=== PATIENT | male | born 1990 | race Two or more races ===

== ENCOUNTER 2025-03-07 02:36 | Inpatient (IN) | payer BC, OTHER ==
[~2025-03-07] VITALS: Ht 177.8 cm; Wt 100.9 kg
[2025-03-07] MEDS: LIDOCAINE VISCOUS 2% 15ML UD PO ONE (03:27)
[2025-03-07] MEDS: MAALOX PLUS or MAALOX 30 ML PO ONE (03:27)
--- NOTE | 2025-03-07 03:28 | ED.PDOC ---
History of Present Illness HPI Comments 34 year old male PMHx IBS, presents to the ED with a chief compliant of abdominal pain onset 2 days. Patient states has been experiencing epigastric pain 2 days ago, worsened this morning. About 1 week ago patient traveled to [place], when he returned he began experiencing sore throat, chills, body ache, watery eyes. This morning he noticed pain was causing shortness of breath, came to ED. Currently rates pain 8/10. Denies fever, nausea, vomiting, diarrhea, constipation, dizziness, chest pain, dysuria, hematuria, melena. No other symptoms or modifying factors present at this time. Patient does not currently have a PCP. PHYSICAL EXAM: General: Awake, alert and oriented. No acute distress. Skin: Skin in warm, dry and intact. Appropriate color for ethnicity. HEENT: The head is normocephalic and atraumatic. Conjunctivae are clear without exudates or hemorrhage. Sclera is non-icteric. Eyelids are normal in appearance without swelling or lesions. Oral mucosa is pink and moist Neck: The neck is supple with normal range of motion. No JVD. Cardiac: Heart rate and rhythm are normal. No murmurs, gallops, or rubs are auscultated. Respiratory: No signs of respiratory distress. Lung sounds are clear in all lobes bilaterally without rales, rhonchi, or wheezes. Abdominal: Epigastric tenderness, no CVA tenderness. Bowel sounds are present and normoactive in all four quadrants. Extremities: Lower extremities without edema. Neurological: The patient is awake, alert and oriented to person, place, and time with normal speech. Speech is clear. There is no facial asymmetry. Psychiatric: Appropriate mood and affect. Good judgement and insight. REVIEW OF SYSTEMS: General: No fever, no chills, or fatigue HEENT: No sore throat, no earache, no congestion, no neck pain. Cardiac: No chest pain. No palpitations. Lungs: shortness of breath, no cough. GI: abdominal pain : No dysuria, frequency, or urgency. No hematuria. Musculoskeletal: No joint pain , no joint swelling, no extremity edema. Skin: No rash, no itching. Neuro: No headache, no dizziness, no weakness (And as sated in HPI) Chief Complaint: Abdominal Pain Time Seen by MD: 03:15 Reviewed Notes: Medications, Allergies Allergies: Coded Allergies: No Known Drug Allergy (Verified Allergy, Unknown, 03/07/25) Information Source: Patient Mode of Arrival: Ambulatory Severity: Moderate Timing: Hours Duration: Since onset Prehospital treatment: None Past Medical History Past Medical History (Other): IBS Surgical History: Denies all surgeries Family History Family History: Reviewed,noncontributory to illness, No family hx of Cancer, No family hx of DM, No family hx of Heart celi, No family hx of HTN, No family hx ofKidney celi, No family hx of Liver celi, No family hx of Lung celi, No family hx of Stroke Social History Smoker: Non-Smoker Alcohol: Denies ETOH Use Drugs: Denies Drug Use Lives In: Home Was a procedure done? Was a procedure done?: No Differential Dx Considerations may include: Differential diagnoses considered include: Abdominal aortic aneurysm, OR, esophageal rupture, intestinal obstruction, mesenteric ischemia, perforated viscus or solid organ rupture, CHF with hepatomegaly, pneumonia, abscess, appendicitis, biliary disease, diverticulitis, gastritis, gastroenteritis, hepatitis, hernia, inflammatory bowel disease, pancreatitis, peptic ulcer disease, urinary tract infection, ureteral colic, constipation, GERD, irritable syndrome, abdominal wall pain, nonspecific abdominal pain, herpes zoster, nephrolithiasis. X-Ray, Labs, Meds, VS Vital Signs Date Time Temp Pulse Resp B/P (MAP) Pulse Ox O2 Delivery O2 Flow Rate FiO2 03/07/25 03:31 Room Air* 0 21 03/07/25 03:29 97.9 89 16 138/58 (84) 96 97.9 03/07/25 02:39 98.4 99 18 143/89 98 98.4 Lab Test 03/07/25 03:45 03/07/25 03:34 Range/Units Influenza Type A Antigen Positive Negative Influenza Type B Antigen Negative Negative SARS-CoV-2 Antigen (Rapid) Negative NEGATIVE White Blood Count 7.3 4.4-10.8 10^3/uL Red Blood Count 5.00 4.5-5.90 10^6/uL Hemoglobin 15.6 13.5-17.5 g/dL Hematocrit 44.2 41.0-53.0 % Mean Corpuscular Volume 88.5 80.0-100.0 fL Mean Corpuscular Hemoglobin 31.2 28.0-32.0 pg Mean Corpuscular Hemoglobin Concent 35.3 32.0-36.0 g/dL Red Cell Distribution Width 12.2 11.8-14.3 % Platelet Count 215 140-450 10^3/uL Mean Platelet Volume 7.4 6.9-10.8 fL Neutrophils (%) (Auto) 85.7 H 37.0-80.0 % Lymphocytes (%) (Auto) 6.5 L 10.0-50.0 % Monocytes (%) (Auto) 7.7 0.0-12.0 % Eosinophils (%) (Auto) 0.0 0.0-7.0 % Basophils (%) (Auto) 0.1 0.0-2.0 % Neutrophils # (Auto) 6.2 1.6-8.6 10 ^3/uL Lymphocytes # (Auto) 0.5 0.4-5.4 10 ^3/uL Monocytes # (Auto) 0.6 0-1.3 10 ^3/uL Eosinophils # (Auto) 0 0-0.8 10 ^3/uL Basophils # (Auto) 0 0-0.2 10 ^3/uL Nucleated Red Blood Cells 0.0 % Sodium Level 141 136-145 mmol/L Potassium Level 3.8 3.5-5.1 mmol/L Chloride Level 104 98-107 mmol/L Carbon Dioxide Level 27 20-31 mmol/L Anion Gap 10 5-15 Blood Urea Nitrogen 12 9-23 mg/dL Creatinine 0.95 0.700-1.30 mg/dL Glomerular Filtration Rate Calc 109 >90 mL/min BUN/Creatinine Ratio 12.6 10.0-20.0 Serum Glucose 139 H 74-106 mg/dL Calcium Level 9.5 8.7-10.4 mg/dL Total Bilirubin 1.4 H 0.2-1.0 mg/dL Aspartate Amino Transferase (AST) 307 H 13-40 U/L Alanine Aminotransferase (ALT) 264 H 7-40 U/L Alkaline Phosphatase 155 H 46-116 U/L Troponin I High Sensitivity 4 </=54 ng/L Total Protein 7.9 5.7-8.2 g/dL Albumin 4.8 3.2-4.8 g/dL Lipase 28 12-53 U/L Thyroid Stimulating Hormone (TSH) 0.63 0.55-4.78 uIU/mL Plasma/Serum Blood Alcohol < 3.0 <10 mg/dL Current Medications Medications (Trade) Dose Ordered Sig/Sana Route Start Time Stop Time Status Last Admin Al Hydrox/Mg Hydrox/Simethicone (Maalox Plus) 30 ml ONCE ONCE PO 03/07/25 03:30 03/07/25 03:31 DC 03/07/25 03:27 Lidocaine HCl (Xylocaine 2% Viscous) 10 ml ONCE ONCE PO 03/07/25 03:30 03/07/25 03:31 DC 03/07/25 03:27 Ketorolac Tromethamine (Toradol Injection) 15 mg ONCE ONCE IV 03/07/25 05:15 03/07/25 06:12 DC 03/07/25 06:27 Time of 1ST Reevaluation: 03:45 Reevaluation 1ST: Unchanged Patient Education/Counseling: Diagnosis, Treatment, Need For Follow Up Family Education/Counseling: No Family Present SEPSIS Sepsis Screen Date sepsis recognized/suspect: Mar 07, 2025 Time Sepsis recognized/suspect: 241 Recent Procedure: No On Antibiotic Therapy: No Respiratory Rate >20: No Heart Rate >90: No Temp<36 C (96.8 F) or >38.3 C: No SBP <90 or MAP <65 mmHG: No New Acute Mental Status Change: No Is the patient on CPAP, BIPAP,: No Physician Orders Chest Xray 1 View (03/07/25 03:20) Electrocardigram (03/07/25 03:20) Abdomen Limited (03/07/25 05:13) Saline Lock (03/07/25 05:13) Vital Signs Date Time Temp Pulse Resp B/P (MAP) Pulse Ox O2 Delivery O2 Flow Rate FiO2 03/07/25 03:31 Room Air* 0 21 03/07/25 03:29 97.9 89 16 138/58 (84) 96 97.9 03/07/25 02:39 98.4 99 18 143/89 98 98.4 Laboratory Tests Test 03/07/25 03:34 White Blood Count 7.3 10^3/uL (4.4-10.8) Departure 1 Departure Time of Disposition: 05:28 Impression: Primary Impression: Elevated LFTs Additional Impressions: Influenza A Abdominal pain Disposition: ADMITTED INPATIENT Condition: Stable Comments MDM: Patient is stabilized in the emergency department. Right upper quadrant ultrasound pending. Patient admitted to hospitalist service for further treatment, evaluation and monitoring. Extensive evaluation was performed in attempt to identify or rule out: (See differential diagnosis section) The following tests were ordered, and results were reviewed by me and discussed with patient: (See diagnostic results section) Decision regarding hospitalization or escalation of hospital level of care: Risk and benefits of admission for further treatment of patient's condition was considered. Due to patient's current clinical condition, high risk of decline and poor outcome if discharged and need for further inpatient management and monitoring, patient will be admitted to the hospital. Parenteral controlled substances: IV morphine Diagnosis or treatment significantly limited by social determinants of health: Patient does not have a PCP. Critical Care Note Critical Care Time?: No Stability Stability form required: No Heart Score Heart Score: Heart Score Response (Comments) Value History N/A 0 EKG N/A 0 Age N/A 0 Risk Factors N/A 0 Troponin N/A 0 Total 0 I personally scribed for MAGNO GRULLON MD ([email or web address]) on 03/07/25 at 03:28. Electronically submitted by Diana Larios ([email or web address]). MAGNO GRULLON MD Mar 07, 2025 03:28
[2025-03-07 03:55] LABS: Hematocrit 44.2 % (41.0-53.0); Hemoglobin 15.6 g/dL (13.5-17.5); Mean Corpuscular Hemoglobin 31.2 pg (28.0-32.0); Mean Corpuscular Volume 88.5 fL (80.0-100.0); Nucleated Red Blood Cells % 0.0 %
[2025-03-07 04:14] LABS: Albumin 4.8 g/dL (3.2-4.8); Anion Gap 10 (5-15); BUN/Creatinine Ratio 12.6 (10.0-20.0); Blood Urea Nitrogen 12 mg/dL (9-23); Calcium 9.5 mg/dL (8.7-10.4); Carbon Dioxide 27 mmol/L (20-31); Chloride 104 mmol/L (98-107); Lipase 28 U/L (12-53); Potassium 3.8 mmol/L (3.5-5.1); Sodium 141 mmol/L (136-145); Total Protein 7.9 g/dL (5.7-8.2)
[2025-03-07 04:37] LABS: Alanine Aminotransferase 264 U/L (7-40); Alkaline Phosphatase 155 U/L (46-116); Bilirubin, Total 1.4 mg/dL (0.2-1.0); Glucose 139 mg/dL (74-106)
[2025-03-07 05:24] LABS: COVID19 ANTIGEN SOFIA FIA NEGATIVE (NEGATIVE)
--- NOTE | 2025-03-07 05:36 | DVH ---
CHEST RADIOGRAPH Indication: Epigastric pain Technique: 1 view Comparison: None FINDINGS: Lines and Tubes: None. Lungs/Pleura: No focal consolidation, pleural effusion or pneumothorax. Cardiomediastinum: Unremarkable. Other: No acute osseous abnormality. IMPRESSION: 1. No acute cardiopulmonary abnormality.
[2025-03-07] MEDS: KETOROLAC TROMETH 30 MG/ML 1ML VIAL IV ONE (06:27)
--- NOTE | 2025-03-07 07:09 | DVH ---
INDICATION: RUQ ultrasound. Elevated LFTs. Epigastric pain. TECHNIQUE: Multiple real-time sonographic images of the abdomen were obtained. COMPARISON: None FINDINGS: The liver is increased in echogenicity. The liver measures 16.9 cm. No intrahepatic biliary ductal dilatation is noted. The gallbladder wall measures 0.2 cm and is unremarkable. No gallstones or sludge is seen. The common duct measures 0.3 cm and is unremarkable. No pericholecystic fluid is noted. Negative sonographic Barreto's sign. The right kidney measures 10.2 cm. No hydronephrosis. The pancreas is not well visualized due to obscuration from bowel gas. The visualized portions of the IVC and aorta are grossly unremarkable. IMPRESSION: 1. Hepatic steatosis. 2. No sonographic evidence of acute cholecystitis.
[2025-03-07] MEDS ORDERED: ACETAMINOPHEN 325 MG TAB PO PRN (07:15)
[2025-03-07] MEDS ORDERED: MORPHINE SULFATE INJ 2 MG/ml SYRG IV PRN (07:15)
--- NOTE | 2025-03-07 07:28 | DVHHP2 ---
History of Present Illness Reason for Visit: Abdominal pain History of Present Illness Sergo Bustos is a 34-year-old male with no past medical history who presents to the ED with abdominal pain that started yesterday at 10:00 p.m.. He reports that the pain is 9/10 "punching" and constant in nature. He reports that lying on his left or right side makes it worse also reports that medications make it better. He reports that he ate coleslaw, doshi salad, popcorn, and cookies yesterday night. Patient also reports that he was at the airport and there was quite a bit of sick people there. Patient reports that he traveled to [facility] 1 week ago and had a significant amount of sushi as well as raw food. 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 Patient denies any recent trauma or injury, recent ingestion of spoiled food, alcohol use, tobacco use, or drug use. Patient also denies chest pain, fever, chills, lightheadedness, weakness, dizziness, nausea, vomiting, diarrhea, or urinary symptoms. Patient expressed that he does not want to stay we will discuss it with his girlfriend. Explained risks and benefits of leaving against medical advice. Patient reports that he lives at home with his girlfriend and her family. Past Surgical History: None Family History: Other (Mom with migraines. Brother and uncle with fatty liver disease.) Smoke: No ALCOHOL: none Drugs: None Lives: with Family Domestic Violence: Neg Review of Systems Respiratory: Shortness of breath Gastrointestinal: Abdominal Pain Allergies: Coded Allergies: No Known Drug Allergy (Verified Allergy, Unknown, 03/07/25) Exam Vital Signs Vital Signs Date Time Temp Pulse Resp B/P (MAP) Pulse Ox O2 Delivery O2 Flow Rate FiO2 03/07/25 03:31 Room Air* 0 21 03/07/25 03:29 97.9 89 16 138/58 (84) 96 97.9 General Appearance: Alert, Oriented X3, Cooperative, No acute distress HEENT: Atraumatic, PERRLA, EOMI, Mucous membr. moist/pink Respiratory: Clear to auscultation, Normal air movement Cardiovascular: Regular rate, Normal S1, Normal S2, No murmurs Abdominal: Normal bowel sounds, Soft Extremities: No clubbing, No cyanosis, No edema, Normal pulses, No tenderness/swelling Skin: No significant lesion Neuro: Normal gait, Normal speech, Strength at 5/5 X4 ext, Normal tone, Sensation intact Psych/Mental Status: Mental status NL, Mood NL Labs/Xrays Labs Test 03/07/25 03:45 03/07/25 03:34 Range/Units Influenza Type A Antigen Positive Negative Influenza Type B Antigen Negative Negative SARS-CoV-2 Antigen (Rapid) Negative NEGATIVE White Blood Count 7.3 4.4-10.8 10^3/uL Red Blood Count 5.00 4.5-5.90 10^6/uL Hemoglobin 15.6 13.5-17.5 g/dL Hematocrit 44.2 41.0-53.0 % Mean Corpuscular Volume 88.5 80.0-100.0 fL Mean Corpuscular Hemoglobin 31.2 28.0-32.0 pg Mean Corpuscular Hemoglobin Concent 35.3 32.0-36.0 g/dL Red Cell Distribution Width 12.2 11.8-14.3 % Platelet Count 215 140-450 10^3/uL Mean Platelet Volume 7.4 6.9-10.8 fL Neutrophils (%) (Auto) 85.7 H 37.0-80.0 % Lymphocytes (%) (Auto) 6.5 L 10.0-50.0 % Monocytes (%) (Auto) 7.7 0.0-12.0 % Eosinophils (%) (Auto) 0.0 0.0-7.0 % Basophils (%) (Auto) 0.1 0.0-2.0 % Neutrophils # (Auto) 6.2 1.6-8.6 10 ^3/uL Lymphocytes # (Auto) 0.5 0.4-5.4 10 ^3/uL Monocytes # (Auto) 0.6 0-1.3 10 ^3/uL Eosinophils # (Auto) 0 0-0.8 10 ^3/uL Basophils # (Auto) 0 0-0.2 10 ^3/uL Nucleated Red Blood Cells 0.0 % Sodium Level 141 136-145 mmol/L Potassium Level 3.8 3.5-5.1 mmol/L Chloride Level 104 98-107 mmol/L Carbon Dioxide Level 27 20-31 mmol/L Anion Gap 10 5-15 Blood Urea Nitrogen 12 9-23 mg/dL Creatinine 0.95 0.700-1.30 mg/dL Glomerular Filtration Rate Calc 109 >90 mL/min BUN/Creatinine Ratio 12.6 10.0-20.0 Serum Glucose 139 H 74-106 mg/dL Calcium Level 9.5 8.7-10.4 mg/dL Total Bilirubin 1.4 H 0.2-1.0 mg/dL Aspartate Amino Transferase (AST) 307 H 13-40 U/L Alanine Aminotransferase (ALT) 264 H 7-40 U/L Alkaline Phosphatase 155 H 46-116 U/L Troponin I High Sensitivity 4 </=54 ng/L Total Protein 7.9 5.7-8.2 g/dL Albumin 4.8 3.2-4.8 g/dL Lipase 28 12-53 U/L INDICATION: RUQ ultrasound. Elevated LFTs. Epigastric pain. TECHNIQUE: Multiple real-time sonographic images of the abdomen were obtained. COMPARISON: None FINDINGS: The liver is increased in echogenicity. The liver measures 16.9 cm. N o intrahepatic biliary ductal dilatation is noted. The gallbladder wall measures 0.2 cm and is unremarkable. No gallstones or sludge is seen. The common duct measures 0.3 cm and is unremarkable. No pericholecystic fluid is noted. Negative sonographic Barreto's sign. The right kidney measures 10.2 cm. No hydronephrosis. The pancreas is not well visualized due to obscuration from bowel gas. The visualized portions of the IVC and aorta are grossly unremarkable. IMPRESSION: 1. Hepatic steatosis. 2. No sonographic evidence of acute cholecystitis. CHEST RADIOGRAPH Indication: Epigastric pain Technique: 1 view Comparison: None FINDINGS: Lines and Tubes: None. Lungs/Pleura: No focal consolidation, pleural effusion or pneumothorax. Cardiomediastinum: Unremarkable. Other: No acute osseous abnormality. IMPRESSION: 1. No acute cardiopulmonary abnormality. SEPSIS Sepsis Screen Date sepsis recognized/suspect: Mar 07, 2025 Time Sepsis recognized/suspect: 0242 Recent Procedure: No On Antibiotic Therapy: No Respiratory Rate >20: No Heart Rate >90: No Temp<36 C (96.8 F) or >38.3 C: No SBP <90 or MAP <65 mmHG: No New Acute Mental Status Change: No Is the patient on CPAP, BIPAP,: No Physician Orders Chest Xray 1 View (03/07/25 03:20) Electrocardigram (03/07/25 03:20) Abdomen Limited (03/07/25 05:13) Saline Lock (03/07/25 05:13) Vital Signs Date Time Temp Pulse Resp B/P (MAP) Pulse Ox O2 Delivery O2 Flow Rate FiO2 03/07/25 03:31 Room Air* 0 21 03/07/25 03:29 97.9 89 16 138/58 (84) 96 97.9 03/07/25 02:39 98.4 99 18 143/89 98 98.4 Laboratory Tests Test 03/07/25 03:34 White Blood Count 7.3 10^3/uL (4.4-10.8) Medications Medications Dose Ordered Sig/Sana Route Start Time Stop Time Status Last Admin Dose Admin Al Hydrox/Mg Hydrox/Simethicone 30 ml ONCE ONCE PO 03/07/25 03:30 03/07/25 03:31 DC 03/07/25 03:27 30 ML Ketorolac Tromethamine 15 mg ONCE ONCE IV 03/07/25 05:15 03/07/25 06:12 DC 03/07/25 06:27 15 MG Lidocaine HCl 10 ml ONCE ONCE PO 03/07/25 03:30 03/07/25 03:31 DC 03/07/25 03:27 10 ML Assessment/Plan Assessment/Plan Assessment Intractable abdominal pain likely due to gastroenteritis Hyperbilirubinemia Transaminitis Hepatic steatosis Influenza A positive Plan Admit to med surge Antiemetics Pain management Trend T bili Tamiflu Abdominal ultrasound noted EKG noted Chest x-ray noted Troponin negative Lipase noted UA UDS Alcohol screen IV fluids Clear liquid diet No home medications to reconcile DVT prophylaxis-SCDs PUD prophylaxis-PPIs Discussed plan of care with patient and nurse [id number] Preventive counseling healthy eating habits, physical activity, and regular checkups Plan discussed with: Patient Date of Service: Mar 07, 2025 Billing Provider: ALVERTO SANCHEZ Common Visit Codes: [id number] INP/OBS CARE (HIGH) Secondary Visit Codes: [id number] COUNSELING IND ALVERTO SANCHEZ Mar 07, 2025 07:28
[2025-03-07 08:28] LABS: Urine Protein, UAD Negative (Negative)
[2025-03-07] MEDS: OSELTAMIVIR 75 MG CAP PO SCH (08:44)
[2025-03-07] MEDS: PANTOPRAZOLE 40 MG/10 ML VIAL INJ IV SCH (08:44)
[2025-03-07] MEDS: SODIUM CHLORIDE 0.9% 1,000 ML IV SCH (09:24)
--- NOTE | 2025-03-07 11:50 | DVHPN2 ---
Reviewed: Care Plan, H&P, Labs, Medications, Previous Orders, Radiology Changes from previous H/P or p: No Changes Respiratory: Shortness of breath Gastrointestinal: Abdominal Pain Objective Vitals Vital Signs Date Time Temp Pulse Resp B/P (MAP) Pulse Ox O2 Delivery O2 Flow Rate FiO2 03/07/25 08:49 98.0 68 14 133/81 (98) 95 98.0 03/07/25 03:31 Room Air* 0 21 Medications Current Medications Medications Dose Ordered Sig/Sana Route Start Time Stop Time Status Last Admin Dose Admin Sodium Chloride 1,000 ml @ 120 mls/hr [id number] IV 03/07/25 07:15 03/07/25 09:24 120 MLS/HR Acetaminophen/ Hydrocodone Bitart 1 tab Q4HP PRN PO 03/07/25 07:15 Ondansetron HCl 4 mg Q4HP PRN IV 03/07/25 07:15 Acetaminophen 650 mg Q6HP PRN PO 03/07/25 07:15 Morphine Sulfate 2 mg Q4HPRN PRN IV 03/07/25 07:15 Oseltamivir Phosphate 75 mg Q12HR PO 03/07/25 10:00 03/12/25 09:59 03/07/25 08:44 75 MG Pantoprazole Sodium 40 mg DAILY IV 03/07/25 10:00 03/07/25 08:44 40 MG Laboratory Results Laboratory Tests 03/07/25 03:34 Chemistry Test 03/07/25 03:34 Albumin 4.8 g/dL (3.2-4.8) Calcium Level 9.5 mg/dL (8.7-10.4) Total Protein 7.9 g/dL (5.7-8.2) Lipid panel Test 03/07/25 03:34 Lipase 28 U/L (12-53) LFT Test 03/07/25 03:34 Alanine Aminotransferase (ALT) 264 U/L (7-40) H Alkaline Phosphatase 155 U/L (46-116) H Aspartate Amino Transferase (AST) 307 U/L (13-40) H Total Bilirubin 1.4 mg/dL (0.2-1.0) H Urinalysis Test 03/07/25 09:34 Urine Color Light-yellow (Yellow) Urine Clarity Clear (Clear) Urine pH 6.5 (5.0-9.0) Urine Specific [place] 1.022 (1.001-1.035) Urine Protein Negative (Negative) Urine Ketones Negative (Negative) Urine Blood Negative /uL (Negative) Urine Nitrite Negative (Negative) Urine Bilirubin Negative (Negative) Urine Urobilinogen Normal mg/dL (Negative) Urine Leukocyte Esterase Negative /uL (Negative) Urine RBC <1 /hpf (0 - 3) Urine Microscopic WBC 1 /HPF (0-3) Urine Squamous Epithelial Cells None seen /hpf (<5) Urine Bacteria Few /hpf (None Seen) H Urine Mucus Few (None Seen) Urine Glucose Normal mg/dL (Normal) Labs and/or images reviewed: Labs reviewed by me, Image(s) reviewed by me Assessment/Plan Assessment/Plan Acute abdominal pain Type A flu positive: Tamiflu 75 mg p.o. b.i.d. five days Mild hyperbilirubinemia bilirubin 1.4 Elevated liver enzymes AST 307 ALT 264 ultrasound hepatitis panel GI consult by Dr. Rigoberto Gamez Fatty liver Time spent 45 minutes Advanced care planning time 20 minutes Plan discussed with: Patient My Orders Orders - HAYLEY LINTON MD Procedure Category Date Status Time Drug Screen LAB 03/07/25 Verified 11:47 Date of Service: Mar 07, 2025 Billing Provider: HAYLEY LINTON MD Common Visit Codes: [id number] INP/OBS CARE(HIGH) Secondary Visit Codes: [id number] CARE PLAN 30 MINUTES HAYLEY LINTON MD Mar 07, 2025 11:50
--- NOTE | 2025-03-07 12:22 | DVHCONRES ---
Date Seen: Mar 07, 2025 Resident Creating Document: NENA RANDOLPH RESIDENT Referring Physician Dr. Powers History of Present Illness Sergo Bustos is a 34-year-old male with no past medical history who presents to the ED with abdominal pain that started yesterday at 10:00 p.m.. He reports that the pain is 9/10 "punching" and constant in nature. He reports that lying on his left or right side makes it worse also reports that medications make it better. He reports that he ate coleslaw, doshi salad, popcorn, and cookies yesterday night. Patient also reports that he was at the airport and there was quite a bit of sick people there. Patient reports that he traveled to [facility] 1 week ago and had a significant amount of sushi as well as raw food. 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 Patient denies any recent trauma or injury, recent ingestion of spoiled food, alcohol use, tobacco use, or drug use. Patient also denies chest pain, fever, chills, lightheadedness, weakness, dizziness, nausea, vomiting, diarrhea, or urinary symptoms. Patient seen and examined in ER. Reports eating sushi/ food at [place], he reports feeling sick as soon as landing in [place] and the foot made it worse. Patient his influenza positive. Ordered hepatitis panel. Denies taking Tylenol/ibuprofen/Motrin. Patient has vomited thrice in the past 2 days. Allergies: Coded Allergies: No Known Drug Allergy (Verified Allergy, Unknown, 03/07/25) Current Medications Current Medications Medications (Trade) Dose Ordered Sig/Sana Route PRN Reason Start Time Stop Time Status Last Admin Sodium Chloride 1,000 ml @ 120 mls/hr Q8H20M IV 03/07/25 07:15 03/07/25 09:24 Acetaminophen/ Hydrocodone Bitart (Rousseau 5/325MG Tab) 1 tab Q4HP PRN PO MODERATE PAIN (4-6 PAIN SCALE) 03/07/25 07:15 Ondansetron HCl (Zofran) 4 mg Q4HP PRN IV NAUSEA / VOMITING 03/07/25 07:15 Acetaminophen (Tylenol Tablet) 650 mg Q6HP PRN PO PAIN SCALE 1-3 OR TEMP>100.4 03/07/25 07:15 Morphine Sulfate 2 mg Q4HPRN PRN IV SEVERE PAIN (7-10 PAIN SCALE) 03/07/25 07:15 Oseltamivir Phosphate (Tamiflu 75MG Capsule) 75 mg Q12HR PO 03/07/25 10:00 03/12/25 09:59 03/07/25 08:44 Pantoprazole Sodium (Protonix) 40 mg DAILY IV 03/07/25 10:00 03/07/25 08:44 Vital Signs Vital Signs Date Time Temp Pulse Resp B/P (MAP) Pulse Ox O2 Delivery O2 Flow Rate FiO2 03/07/25 08:49 98.0 68 14 133/81 (98) 95 98.0 03/07/25 03:31 Room Air* 0 21 Physical Exam Patient lying in bed, in no acute distress General: Well-built, afebrile, palor, mucosae are moist Cardiovascular: Regular S1 and S2. No murmurs, gallops or rubs. No JVD elevation. No pedal edema Respiratory: Normal B/L air entry on room air. Clear lung sounds on auscultation Abdomen: Soft, nontender, nondistended, normoactive bowel sounds, no rebound tenderness, no organomegaly, no masses Genitourinary: Deferred MSK/skin: Mobilizes 4 limbs. Skin is dry and warm Neurological: No motor, no sensitive deficits, normal speech. Pupils are isocoric and reactive. Psych/Mental Status: A/Ox3 Labs/Diagnostic Data Labs Test 03/07/25 09:34 03/07/25 03:45 03/07/25 03:34 Range/Units Urine Color Light-yellow Yellow Urine Clarity Clear Clear Urine pH 6.5 5.0-9.0 Urine Specific [place] 1.022 1.001-1.035 Urine Protein Negative Negative Urine Ketones Negative Negative Urine Blood Negative Negative /uL Urine Nitrite Negative Negative Urine Bilirubin Negative Negative Urine Urobilinogen Normal Negative mg/dL Urine Leukocyte Esterase Negative Negative /uL Urine RBC <1 0 - 3 /hpf Urine Microscopic WBC 1 0-3 /HPF Urine Squamous Epithelial Cells None seen <5 /hpf Urine Bacteria Few H None Seen /hpf Urine Mucus Few None Seen Urine Glucose Normal Normal mg/dL Influenza Type A Antigen Positive Negative Influenza Type B Antigen Negative Negative SARS-CoV-2 Antigen (Rapid) Negative NEGATIVE White Blood Count 7.3 4.4-10.8 10^3/uL Red Blood Count 5.00 4.5-5.90 10^6/uL Hemoglobin 15.6 13.5-17.5 g/dL Hematocrit 44.2 41.0-53.0 % Mean Corpuscular Volume 88.5 80.0-100.0 fL Mean Corpuscular Hemoglobin 31.2 28.0-32.0 pg Mean Corpuscular Hemoglobin Concent 35.3 32.0-36.0 g/dL Red Cell Distribution Width 12.2 11.8-14.3 % Platelet Count 215 140-450 10^3/uL Mean Platelet Volume 7.4 6.9-10.8 fL Neutrophils (%) (Auto) 85.7 H 37.0-80.0 % Lymphocytes (%) (Auto) 6.5 L 10.0-50.0 % Monocytes (%) (Auto) 7.7 0.0-12.0 % Eosinophils (%) (Auto) 0.0 0.0-7.0 % Basophils (%) (Auto) 0.1 0.0-2.0 % Neutrophils # (Auto) 6.2 1.6-8.6 10 ^3/uL Lymphocytes # (Auto) 0.5 0.4-5.4 10 ^3/uL Monocytes # (Auto) 0.6 0-1.3 10 ^3/uL Eosinophils # (Auto) 0 0-0.8 10 ^3/uL Basophils # (Auto) 0 0-0.2 10 ^3/uL Nucleated Red Blood Cells 0.0 % Sodium Level 141 136-145 mmol/L Potassium Level 3.8 3.5-5.1 mmol/L Chloride Level 104 98-107 mmol/L Carbon Dioxide Level 27 20-31 mmol/L Anion Gap 10 5-15 Blood Urea Nitrogen 12 9-23 mg/dL Creatinine 0.95 0.700-1.30 mg/dL Glomerular Filtration Rate Calc 109 >90 mL/min BUN/Creatinine Ratio 12.6 10.0-20.0 Serum Glucose 139 H 74-106 mg/dL Calcium Level 9.5 8.7-10.4 mg/dL Total Bilirubin 1.4 H 0.2-1.0 mg/dL Aspartate Amino Transferase (AST) 307 H 13-40 U/L Alanine Aminotransferase (ALT) 264 H 7-40 U/L Alkaline Phosphatase 155 H 46-116 U/L Troponin I High Sensitivity 4 </=54 ng/L Total Protein 7.9 5.7-8.2 g/dL Albumin 4.8 3.2-4.8 g/dL Lipase 28 12-53 U/L Assessment Acute gastroenteritis likely food-borne Acute influenza A infection History of IBS-constipation type-dicyclomine Hepatic steatosis Rule out hepatitis-C Plan: Recommendation: Dr. Gamez Continue IV fluids, IV antiemetics. H&H stable. No acute GI intervention indicated at this time. Follow up with the stool studies. Follow up with hepatitis studies. Monitor CMP. Continue Protonix 40 mg IV daily. Continue clear liquid diet, advanced as tolerated. Thank you for consulting GI we will continue to follow up. Plan discussed with patient in which all questions have been answered Case discussed with Dr. Gamez. Plan discussed with: Patient NENA RANDOLPH RESIDENT Mar 07, 2025 12:22
[2025-03-07 13:09] LABS: INR 0.97 (0.9-1.15); Partial Thromboplastin Time 30.1 SEC (24.5-34.5); Prothrombin Time 10.3 sec (9.3-11.8)
[2025-03-07 15:27] LABS: Opiate Scree,Urine Neg (NEGATIVE); Phencyclidine Screen, Urine Neg (NEGATIVE)
[2025-03-07 15:29] LABS: Amphetamine Screen, Urine Neg (NEGATIVE); Barbiturate Scree,Urine Neg (NEGATIVE); Benzodiazephine Screen, Urine Neg (NEGATIVE); Cannabinoid Screen, Urine Neg (NEGATIVE); Cocaine Screen, Urine Neg (NEGATIVE)
[2025-03-07 23:16] VITALS: BP 123/73; PULSE 66; RESP 17; TEMP 97.7; O2SAT 98
[2025-03-07 23:55] VITALS: BP 123/73; PULSE 66; RESP 17; TEMP 97.7; O2SAT 98
[2025-03-08] VITALS (7 sets, daily range): BP systolic 97–126; BP diastolic 50–78; PULSE 63–93; RESP 14–18; TEMP 97.1–98.6; O2SAT 93–98
[2025-03-08] MEDS ORDERED: DICY10CA PO (03:14)
[2025-03-08 05:17] LABS: Hematocrit 39.0 % (41.0-53.0); Hemoglobin 13.7 g/dL (13.5-17.5); Mean Corpuscular Hemoglobin 31.4 pg (28.0-32.0); Mean Corpuscular Volume 89.1 fL (80.0-100.0); Nucleated Red Blood Cells % 0.2 %
[2025-03-08 05:29] LABS: Alkaline Phosphatase 110 U/L (46-116); Anion Gap 5 (5-15); BUN/Creatinine Ratio 8.1 (10.0-20.0); Calcium 8.7 mg/dL (8.7-10.4); Carbon Dioxide 29 mmol/L (20-31); Glucose 104 mg/dL (74-106); Potassium 4.1 mmol/L (3.5-5.1); Sodium 143 mmol/L (136-145); Total Protein 6.3 g/dL (5.7-8.2)
[2025-03-08 05:30] LABS: Alanine Aminotransferase 214 U/L (7-40); Albumin 3.8 g/dL (3.2-4.8); Blood Urea Nitrogen 7 mg/dL (9-23); Chloride 109 mmol/L (98-107)
[2025-03-08 05:31] LABS: Bilirubin, Total 1.2 mg/dL (0.2-1.0)
[2025-03-08] MEDS: HYDROcodone-ACET 5/325MG TAB PO PRN (06:38)
--- NOTE | 2025-03-08 09:48 | DVHPN2 ---
Reviewed: Care Plan, H&P, Labs, Medications, Previous Orders, Radiology Changes from previous H/P or p: No Changes Respiratory: Shortness of breath Gastrointestinal: Abdominal Pain Objective Vitals Vital Signs Date Time Temp Pulse Resp B/P (MAP) Pulse Ox O2 Delivery O2 Flow Rate FiO2 03/08/25 05:00 97.1 93 16 98/57 (71) 95 97.1 03/07/25 23:55 Room Air* 0 21 Intake/Output Intake and Output 03/08/25 07:00 Intake Total 320 ml Balance 320 ml Intake Oral 320 ml # Voids 2 Medications Current Medications Medications Dose Ordered Sig/Sana Route Start Time Stop Time Status Last Admin Dose Admin Sodium Chloride 1,000 ml @ 120 mls/hr Q8H20M IV 03/07/25 07:15 03/07/25 22:48 120 MLS/HR Acetaminophen/ Hydrocodone Bitart 1 tab Q4HP PRN PO 03/07/25 07:15 03/08/25 06:38 1 TAB Ondansetron HCl 4 mg Q4HP PRN IV 03/07/25 07:15 Acetaminophen 650 mg Q6HP PRN PO 03/07/25 07:15 Morphine Sulfate 2 mg Q4HPRN PRN IV 03/07/25 07:15 Oseltamivir Phosphate 75 mg Q12HR PO 03/07/25 10:00 03/12/25 09:59 03/07/25 22:47 75 MG Pantoprazole Sodium 40 mg DAILY IV 03/07/25 10:00 03/07/25 08:44 40 MG Laboratory Results Laboratory Tests 03/08/25 04:55 Chemistry Test 03/08/25 04:55 Albumin 3.8 g/dL (3.2-4.8) Calcium Level 8.7 mg/dL (8.7-10.4) Total Protein 6.3 g/dL (5.7-8.2) Coagulation Test 03/07/25 12:40 Prothrombin Time 10.3 sec (9.3-11.8) Prothrombin Time INR 0.97 (0.9-1.15) Activated Partial Thromboplast Time 30.1 SEC (24.5-34.5) LFT Test 03/08/25 04:55 Alanine Aminotransferase (ALT) 214 U/L (7-40) H Alkaline Phosphatase 110 U/L (46-116) Aspartate Amino Transferase (AST) 89 U/L (13-40) H Total Bilirubin 1.2 mg/dL (0.2-1.0) H Urinalysis Test 03/07/25 09:34 Urine Color Light-yellow (Yellow) Urine Clarity Clear (Clear) Urine pH 6.5 (5.0-9.0) Urine Specific [place] 1.022 (1.001-1.035) Urine Protein Negative (Negative) Urine Ketones Negative (Negative) Urine Blood Negative /uL (Negative) Urine Nitrite Negative (Negative) Urine Bilirubin Negative (Negative) Urine Urobilinogen Normal mg/dL (Negative) Urine Leukocyte Esterase Negative /uL (Negative) Urine RBC <1 /hpf (0 - 3) Urine Microscopic WBC 1 /HPF (0-3) Urine Squamous Epithelial Cells None seen /hpf (<5) Urine Bacteria Few /hpf (None Seen) H Urine Mucus Few (None Seen) Urine Glucose Normal mg/dL (Normal) Labs and/or images reviewed: Labs reviewed by me, Image(s) reviewed by me Assessment/Plan Assessment/Plan Acute abdominal pain Type A flu positive: Tamiflu 75 mg p.o. b.i.d. five days Mild hyperbilirubinemia bilirubin 1.4 Elevated liver enzymes AST 307 ALT 264 gallbladder ultrasound shows no gallstones, fatty liver, hepatitis panel pending, GI consult by Dr. Rigoberto Gamez appreciated Fatty liver Time spent 45 minutes Advanced care planning time 20 minutes Plan discussed with: Patient My Orders Orders - HAYLEY LINTON MD Procedure Category Date Status Time * Gi [facility] In Home Tutor CONS 03/07/25 Transmitted 11:51 Date of Service: Mar 08, 2025 Billing Provider: HAYLEY LINTON MD Common Visit Codes: [id number] INP/OBS CARE(HIGH) HAYLEY LINTON MD Mar 08, 2025 09:48
[2025-03-08] MEDS: ONDANSETRON HCL 4 MG/2 ML VIAL IV PRN (10:59)
[2025-03-08 11:22] LABS: Hepatitis A Total Antibody Negative (Negative); Hepatitis B Surface Antigen Negative (Negative); Hepatitis C Antibody Negative (Negative)
--- NOTE | 2025-03-08 14:15 | DVHPN2 ---
Progress Note Date Seen: Mar 08, 2025 Resident Creating Document: NENA RANDOLPH RESIDENT Medical Necessity Reason Pt with a Central, PICC or Fol: No Subjective Review of Systems Sergo Bustos is a 34-year-old male with no past medical history who presents to the ED with abdominal pain that started yesterday at 10:00 p.m.. He reports that the pain is 9/10 "punching" and constant in nature. He reports that lying on his left or right side makes it worse also reports that medications make it better. He reports that he ate coleslaw, doshi salad, popcorn, and cookies yesterday night. Patient also reports that he was at the airport and there was quite a bit of sick people there. Patient reports that he traveled to [facility] 1 week ago and had a significant amount of sushi as well as raw food. 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 Patient denies any recent trauma or injury, recent ingestion of spoiled food, alcohol use, tobacco use, or drug use. Patient also denies chest pain, fever, chills, lightheadedness, weakness, dizziness, nausea, vomiting, diarrhea, or urinary symptoms. 03/07-Patient seen and examined in ER. Reports eating sushi/ food at [place], he reports feeling sick as soon as landing in [place] and the foot made it worse. Patient his influenza positive. Ordered hepatitis panel. Denies taking Tylenol/ibuprofen/Motrin. Patient has vomited thrice in the past 2 days. 03/08-patient seen and examined. Reports feeling better. Reports nausea. No vomiting. Started full liquid diet. Objective vital signs Vital Sign Date Time Temp Pulse Resp B/P (MAP) Pulse Ox O2 Delivery O2 Flow Rate FiO2 03/08/25 13:00 98.2 82 18 126/78 (94) 98 98.2 03/08/25 08:00 Room Air* 0 21 Total Intake and Output 03/07/25 03/07/25 03/08/25 15:00 23:00 07:00 Intake Total 320 ml Balance 320 ml medications Current Medications Medications Dose Ordered Sig/Sana Route Start Time Stop Time Status Last Admin Dose Admin Sodium Chloride 1,000 ml @ 120 mls/hr Q8H20M IV 03/07/25 07:15 03/07/25 22:48 120 MLS/HR Acetaminophen/ Hydrocodone Bitart 1 tab Q4HP PRN PO 03/07/25 07:15 03/08/25 06:38 1 TAB Ondansetron HCl 4 mg Q4HP PRN IV 03/07/25 07:15 03/08/25 10:59 4 MG Acetaminophen 650 mg Q6HP PRN PO 03/07/25 07:15 Morphine Sulfate 2 mg Q4HPRN PRN IV 03/07/25 07:15 Oseltamivir Phosphate 75 mg Q12HR PO 03/07/25 10:00 03/12/25 09:59 03/08/25 11:00 75 MG Pantoprazole Sodium 40 mg BID IV 03/08/25 22:00 Examination Patient lying in bed, in no acute distress General: Well-built, afebrile, palor, mucosae are moist Cardiovascular: Regular S1 and S2. No murmurs, gallops or rubs. No JVD elevation. No pedal edema Respiratory: Normal B/L air entry on room air. Clear lung sounds on auscultation Abdomen: Soft, nontender, nondistended, normoactive bowel sounds, no rebound tenderness, no organomegaly, no masses Genitourinary: Deferred MSK/skin: Mobilizes 4 limbs. Skin is dry and warm Neurological: No motor, no sensitive deficits, normal speech. Pupils are isocoric and reactive. Psych/Mental Status: A/Ox3 laboratory and microbiology Laboratory Tests 03/08/25 04:55 Test 03/08/25 04:55 Range/Units Serum Glucose 104 74-106 mg/dL Labs and/or images reviewed: Labs reviewed by me, Image(s) reviewed by me Problem List/Assessment/Plan Problem List/Assessment/Plan Acute gastroenteritis likely food-borne Acute influenza A infection History of IBS-constipation type-dicyclomine Hepatic steatosis Ruled out hepatitis Plan: Recommendation: Dr. Gamez Continue IV fluids, IV antiemetics. H&H stable. No acute GI intervention indicated at this time. Follow up with the stool studies. Hepatitis panel unremarkable. LFTs trending down Continue Protonix 40 mg IV daily. Diet advanced to full liquid Thank you for consulting GI we will continue to follow up. Plan discussed with patient in which all questions have been answered Case discussed with Dr. Gamze. Plan discussed with: Patient NENA RANDOLPH RESIDENT Mar 08, 2025 14:15
[2025-03-08] MEDS: PANTOPRAZOLE 40 MG/10 ML VIAL INJ IV SCH (20:36)
[2025-03-08] MEDS ORDERED: InsuLIN REG 1unit/0.01ml Soln (100units/ml) ONE (22:48)
[2025-03-09 01:00] VITALS: BP 112/81; PULSE 61; RESP 17; TEMP 97.7; O2SAT 94
[2025-03-09 05:00] VITALS: BP 102/66; PULSE 87; RESP 17; TEMP 97.7; O2SAT 95
[2025-03-09 06:40] LABS: Albumin 4.0 g/dL (3.2-4.8); Alkaline Phosphatase 110 U/L (46-116); Anion Gap 10 (5-15); BUN/Creatinine Ratio 6.2 (10.0-20.0); Calcium 9.0 mg/dL (8.7-10.4); Carbon Dioxide 28 mmol/L (20-31); Chloride 106 mmol/L (98-107); Glucose 93 mg/dL (74-106); Potassium 3.8 mmol/L (3.5-5.1); Sodium 144 mmol/L (136-145); Total Protein 6.7 g/dL (5.7-8.2)
[2025-03-09 06:41] LABS: Bilirubin, Total 0.9 mg/dL (0.2-1.0)
[2025-03-09 06:46] LABS: Alanine Aminotransferase 154 U/L (7-40); Blood Urea Nitrogen 6 mg/dL (9-23)
[2025-03-09 08:00] VITALS: PULSE 80; RESP 16; O2SAT 95
[2025-03-09 08:30] VITALS: BP 109/78; PULSE 80; RESP 21; TEMP 97.3; O2SAT 95
[2025-03-09] MEDS ORDERED: OSEL75CA5 PO (08:31)
[2025-03-09] MEDS ORDERED: PANT40T PO (08:32)
--- NOTE | 2025-03-09 08:33 | DVHPN2 ---
Reviewed: Care Plan, H&P, Labs, Medications, Previous Orders, Radiology Changes from previous H/P or p: No Changes Respiratory: Shortness of breath Gastrointestinal: Abdominal Pain Objective Vitals Vital Signs Date Time Temp Pulse Resp B/P (MAP) Pulse Ox O2 Delivery O2 Flow Rate FiO2 03/09/25 05:00 97.7 87 17 102/66 (78) 95 97.7 03/08/25 20:00 Room Air* 0 21 Intake/Output Intake and Output 03/09/25 07:00 Intake Total 3650 ml Balance 3650 ml Intake Oral 2650 ml IV Total 1000 ml # Voids 9 Medications Current Medications Medications Dose Ordered Sig/Sana Route Start Time Stop Time Status Last Admin Dose Admin Sodium Chloride 1,000 ml @ 120 mls/hr Q8H20M IV 03/07/25 07:15 03/09/25 00:55 120 MLS/HR Acetaminophen/ Hydrocodone Bitart 1 tab Q4HP PRN PO 03/07/25 07:15 03/08/25 06:38 1 TAB Ondansetron HCl 4 mg Q4HP PRN IV 03/07/25 07:15 03/08/25 10:59 4 MG Acetaminophen 650 mg Q6HP PRN PO 03/07/25 07:15 Morphine Sulfate 2 mg Q4HPRN PRN IV 03/07/25 07:15 Oseltamivir Phosphate 75 mg Q12HR PO 03/07/25 10:00 03/12/25 09:59 03/08/25 20:37 75 MG Pantoprazole Sodium 40 mg BID IV 03/08/25 22:00 03/08/25 20:36 40 MG Laboratory Results Laboratory Tests 03/08/25 04:55 03/09/25 05:04 Chemistry Test 03/09/25 05:04 Albumin 4.0 g/dL (3.2-4.8) Calcium Level 9.0 mg/dL (8.7-10.4) Total Protein 6.7 g/dL (5.7-8.2) LFT Test 03/09/25 05:04 Alanine Aminotransferase (ALT) 154 U/L (7-40) H Alkaline Phosphatase 110 U/L (46-116) Aspartate Amino Transferase (AST) 35 U/L (13-40) Total Bilirubin 0.9 mg/dL (0.2-1.0) Urinalysis Test 03/07/25 09:34 Urine Color Light-yellow (Yellow) Urine Clarity Clear (Clear) Urine pH 6.5 (5.0-9.0) Urine Specific [place] 1.022 (1.001-1.035) Urine Protein Negative (Negative) Urine Ketones Negative (Negative) Urine Blood Negative /uL (Negative) Urine Nitrite Negative (Negative) Urine Bilirubin Negative (Negative) Urine Urobilinogen Normal mg/dL (Negative) Urine Leukocyte Esterase Negative /uL (Negative) Urine RBC <1 /hpf (0 - 3) Urine Microscopic WBC 1 /HPF (0-3) Urine Squamous Epithelial Cells None seen /hpf (<5) Urine Bacteria Few /hpf (None Seen) H Urine Mucus Few (None Seen) Urine Glucose Normal mg/dL (Normal) Labs and/or images reviewed: Labs reviewed by me, Image(s) reviewed by me Assessment/Plan Assessment/Plan Acute abdominal pain Type A flu positive: Tamiflu 75 mg p.o. b.i.d. five days Mild hyperbilirubinemia bilirubin 1.4 Elevated liver enzymes AST 307 ALT 264 gallbladder ultrasound shows no gallstones, fatty liver, hepatitis panel negative , GI consult by Dr. Rigoberto Gamez appreciated Fatty liver Time spent 45 minutes Advanced care planning time 20 minutes Patient feels better with a stable vital signs and wants to go home Plan discussed with: Patient Date of Service: Mar 09, 2025 Billing Provider: HAYLEY LINTON MD Common Visit Codes: [id number] INP/OBS CARE(HIGH) HAYLEY LINTON MD Mar 09, 2025 08:33
--- NOTE | 2025-03-09 08:37 | DVHDS2 ---
Discharge Summary Date of Admission Mar 07, 2025 at 07:12 Date of Discharge: Mar 09, 2025 Admitting Diagnosis Abdominal pain Wounds: None Labs/Diagnostic Data: Laboratory Results Test 03/09/25 05:04 03/08/25 14:46 03/08/25 04:55 03/07/25 12:40 Sodium Level 144 mmol/L (136-145) Potassium Level 3.8 mmol/L (3.5-5.1) Chloride Level 106 mmol/L (98-107) Carbon Dioxide Level 28 mmol/L (20-31) Anion Gap 10 (5-15) Blood Urea Nitrogen 6 mg/dL (9-23) Creatinine 0.97 mg/dL (0.700-1.30) Glomerular Filtration Rate Calc 106 mL/min (>90) BUN/Creatinine Ratio 6.2 (10.0-20.0) Serum Glucose 93 mg/dL (74-106) Calcium Level 9.0 mg/dL (8.7-10.4) Total Bilirubin 0.9 mg/dL (0.2-1.0) Aspartate Amino Transferase (AST) 35 U/L (13-40) Alanine Aminotransferase (ALT) 154 U/L (7-40) Alkaline Phosphatase 110 U/L (46-116) Total Protein 6.7 g/dL (5.7-8.2) Albumin 4.0 g/dL (3.2-4.8) Stool Occult Blood Negative (Negative) Stool Occult Blood Sample #3 (Negative) Stool for White Cells None seen White Blood Count 5.8 10^3/uL (4.4-10.8) Red Blood Count 4.37 10^6/uL (4.5-5.90) Hemoglobin 13.7 g/dL (13.5-17.5) Hematocrit 39.0 % (41.0-53.0) Mean Corpuscular Volume 89.1 fL (80.0-100.0) Mean Corpuscular Hemoglobin 31.4 pg (28.0-32.0) Mean Corpuscular Hemoglobin Concent 35.3 g/dL (32.0-36.0) Red Cell Distribution Width 12.2 % (11.8-14.3) Platelet Count 218 10^3/uL (140-450) Mean Platelet Volume 7.2 fL (6.9-10.8) Neutrophils (%) (Auto) 60.8 % (37.0-80.0) Lymphocytes (%) (Auto) 26.8 % (10.0-50.0) Monocytes (%) (Auto) 12.4 % (0.0-12.0) Eosinophils (%) (Auto) 0.0 % (0.0-7.0) Basophils (%) (Auto) 0.0 % (0.0-2.0) Neutrophils # (Auto) 3.5 10 ^3/uL (1.6-8.6) Lymphocytes # (Auto) 1.5 10 ^3/uL (0.4-5.4) Monocytes # (Auto) 0.7 10 ^3/uL (0-1.3) Eosinophils # (Auto) 0 10 ^3/uL (0-0.8) Basophils # (Auto) 0 10 ^3/uL (0-0.2) Nucleated Red Blood Cells 0.2 % Prothrombin Time 10.3 sec (9.3-11.8) Prothrombin Time INR 0.97 (0.9-1.15) Activated Partial Thromboplast Time 30.1 SEC (24.5-34.5) Hepatitis A IgM Antibody Negative Hepatitis A Antibody Total Negative (Negative) Hepatitis B Surface Antigen Negative (Negative) Hepatitis B Surface Antibody Positive (Negative) Hepatitis B Core Total Antibody Negative (Negative) Hepatitis B Core IgM Antibody Negative (Negative) Hepatitis C Antibody Negative (Negative) Test 03/07/25 09:34 03/07/25 03:45 03/07/25 03:34 Urine Color Light-yellow (Yellow) Urine Clarity Clear (Clear) Urine pH 6.5 (5.0-9.0) Urine Specific [place] 1.022 (1.001-1.035) Urine Protein Negative (Negative) Urine Ketones Negative (Negative) Urine Blood Negative /uL (Negative) Urine Nitrite Negative (Negative) Urine Bilirubin Negative (Negative) Urine Urobilinogen Normal mg/dL (Negative) Urine Leukocyte Esterase Negative /uL (Negative) Urine RBC <1 /hpf (0 - 3) Urine Microscopic WBC 1 /HPF (0-3) Urine Squamous Epithelial Cells None seen /hpf (<5) Urine Bacteria Few /hpf (None Seen) Urine Mucus Few (None Seen) Urine Glucose Normal mg/dL (Normal) Urine Opiates Screen Neg (NEGATIVE) Urine Fentanyl Screen Neg (NEGATIVE) Urine Barbiturates Screen Neg (NEGATIVE) Urine Phencyclidine Screen Neg (NEGATIVE) Urine Amphetamines Screen Neg (NEGATIVE) Urine Benzodiazepines Screen Neg (NEGATIVE) Urine Cocaine Screen Neg (NEGATIVE) Urine Cannabinoids Screen Neg (NEGATIVE) Influenza Type A Antigen Positive (Negative) Influenza Type B Antigen Negative (Negative) SARS-CoV-2 Antigen (Rapid) Negative (NEGATIVE) Troponin I High Sensitivity 4 ng/L (</=54) Lipase 28 U/L (12-53) Thyroid Stimulating Hormone (TSH) 0.63 uIU/mL (0.55-4.78) Plasma/Serum Blood Alcohol < 3.0 mg/dL (<10) Other Laboratory Tests 03/09/25 05:04 03/08/25 04:55 Brief Hx & Hospital Course: 34-year-old male came in for abdominal pain found to have mild hyperbilirubinemia of 1.4 and elevated liver enzymes AST 3078 ID to [id number] gallbladder ultrasound negative for gallstones Boudreaux showed fatty liver hepatitis panel negative GI consult by Dr. Rigoberto Gamez patient has had type A flu treated with the Tamiflu patient feels better and wants to go home. Discharged home on Tamiflu for type a flu and pantoprazole. At the time of discharge patient is asymptomatic with stable vital signs tolerating regular diet Consults/Reason for consult GI Dr. Rigoberto Gamez Operations or Procedures CT abdomen pelvis without contrast Condition at Discharge: Fair Final Diagnosis/Problems List Acute abdominal pain Type A flu positive: Tamiflu 75 mg p.o. b.i.d. five days Mild hyperbilirubinemia bilirubin 1.4 Elevated liver enzymes AST 307 ALT 264 gallbladder ultrasound shows no gallstones, fatty liver, hepatitis panel negative , GI consult by Dr. Rigoberto Gamez appreciated Fatty liver Discharge Disposition: Home Discharge Instruct/Medications Diet: Regular Activity: No Restrictions, As Tolerated Follow Up/Referral: Follow up with the primary Dr Medications: Tamiflu Pantoprazole Transmitted to pharmacy Scheduled Dicyclomine Hcl (Bentyl Capsule), 1 CAP PO TID, (Reported) Oseltamivir Phosphate (Tamiflu), 1 CAP PO BID Pantoprazole Sodium Sesquihydr (Pantoprazole Sodium), 40 MG PO BID 39 (Time taken for discharge summary 39 minutes) Discharge Statement: "Patient was advised to return to the ER or call 911 if any headaches, dizziness, shortness of breath, chest pain, abdominal pain, bleeding, fevers, or worsening of medical condition. Patient was counseled about treatment plan, medications, possible side effects, patientverbalized understanding. All questions were answered to the best of my ability. This discharge took greater then 30 minutes in planning, reviewing documentation, counseling the patient, and discussing with other team members." ASSESSMENT ASSESSMENT Hospital Course Uneventful: Assessment Acute abdominal pain Type A flu positive: Tamiflu 75 mg p.o. b.i.d. five days Mild hyperbilirubinemia bilirubin 1.4 Elevated liver enzymes AST 307 ALT 264 gallbladder ultrasound shows no gallstones, fatty liver, hepatitis panel negative , GI consult by Dr. Rigoberto Gamez appreciated Fatty liver Date of Service: Mar 09, 2025 Billing Provider: HAYLEY LINTON MD Common Visit Codes: [id number] DISCH DAY >30min HAYLEY LINTON MD Mar 09, 2025 08:37
[2025-03-09 10:03] VITALS: BP 109/78; PULSE 80; RESP 19; TEMP 97.3; O2SAT 95
--- NOTE | 2025-03-09 18:14 | DVHPN2 ---
Progress Note - Dictate Date Seen: Mar 09, 2025 (Late entryTime of visit was 10:00 a.m.) Medical Necessity Reason Pt with a Central, PICC or Fol: No Subjective No new complaints Patient is feeling better No further episodes of nausea or vomiting No bowel movement or diarrhea recorded vital signs Vital Sign Date Time Temp Pulse Resp B/P (MAP) Pulse Ox O2 Delivery O2 Flow Rate FiO2 03/09/25 10:03 97.3 80 19 95 03/09/25 08:30 109/78 (88) 03/09/25 08:00 Room Air* 0 21 Total Intake and Output 03/08/25 03/08/25 03/09/25 15:00 23:00 07:00 Intake Total 2850 ml 800 ml Balance 2850 ml 800 ml objective General: Well-built, afebrile, palor, mucosae are moist Cardiovascular: Regular S1 and S2. No murmurs, gallops or rubs. No JVD elevation. No pedal edema Respiratory: Normal B/L air entry on room air. Clear lung sounds on auscultation Abdomen: Soft, nontender, nondistended, normoactive bowel sounds, no rebound tenderness, no organomegaly, no masses Genitourinary: Deferred MSK/skin: Mobilizes 4 limbs. Skin is dry and warm Neurological: No motor, no sensitive deficits, normal speech. Pupils are isocoric and reactive. Psych/Mental Status: A/Ox3 laboratory and microbiology Laboratory Tests 03/09/25 05:04 03/08/25 04:55 Test 03/09/25 05:04 Range/Units Serum Glucose 93 74-106 mg/dL Problems(with codes): (1) Acute gastroenteritis (2) Elevated LFTs (3) Influenza A (4) Abdominal pain Prognosis Plan Advance diet as tolerated Maintained on PPI Zofran as needed for nausea Discharge planning is in progress He can follow up in my office as an outpatient for any ongoing or recurrent symptoms Once again thank you for allowing me to participate in the care of this patient Plan discussed with: Patient ELSIE WEST MD Mar 09, 2025 18:14
== END 2025-03-09 10:30 | disposition home or self-care (01) | DRG 195 ==
LOC: ER 02:36 → OVERFLOW 07:12 → EAST 21:57
PROVIDERS: ADMIT Family Medicine; ATTEND Family Medicine
DX: J10.1 Influenza due to other identified influenza virus with other respiratory manifestations (principal); E80.6 Other disorders of bilirubin metabolism; K76.0 Fatty (change of) liver, not elsewhere classified; K58.9 Irritable bowel syndrome, unspecified; R79.89 Other specified abnormal findings of blood chemistry; Z20.822 Contact with and (suspected) exposure to COVID-19
CPT/HCPCS: 36415; 71045; 76705; 80053; 80074; 80307; 80320; 81001; 82270; 83690; 84443; 84484; 85025; 85048; 85610; 85730; 86704; 86706; 86708; 86803; 87045; 87177; 87340; 87426; 87427; 87804; 96374; G0378; J1815; J1885; J2405; J2470